=== PATIENT | female | born 1980 | race Caucasian/White ===

== ENCOUNTER 2018-02-08 14:46 | Emergency (ER) | payer BC ==
[~2018-02-08 14:46] MED LIST: PANT40 PO; PROM25 PO
== END 2018-02-08 16:30 | disposition left against medical advice (07) ==
LOC: ER 14:46
DX: Z53.21 Procedure and treatment not carried out due to patient leaving prior to being seen by health care provider (principal)

== ENCOUNTER 2018-02-08 16:39 | Emergency (ER) | payer BC ==
[~2018-02-08] VITALS: Ht 152.4 cm; Wt 61.2 kg
== END 2018-02-08 18:48 | disposition home or self-care (01) ==
LOC: ER 16:39
DX: M65.4 Radial styloid tenosynovitis [de Quervain] (principal)
CPT/HCPCS: 29125; 99283-25

== ENCOUNTER → 2018-09-03 | Outpatient (CLI) | payer BC ==
[2018-09-03 16:23] LABS: Appearance, Urine Hazy (Clear); Bilirubin, Urine Neg (Neg); Blood, Urine Neg (Neg); Color, Urine Yellow (P-Yellow); Glucose Qualitative, Urine Neg (Neg); Ketones, Urine Neg (Neg); Leukocyte Esterase, Urine Neg (Neg); Nitrite, Urine Neg (Neg); Protein, Urine 1+ (Neg); Urobilinogen, Urine NORM (Normal)
[2018-09-03 17:14] LABS: Bacteria Rare /hpf; Calcium Oxalate Crystals Few /hpf; Red Blood Cells, Urine Not Seen /hpf (0-2); Squamous Epithelial Cells Mod /hpf (Few); White Blood Cells, Urine 0-2 /hpf (0-5)
== END | disposition home or self-care (01) ==
LOC: LAB SHORT 09-02 09:32 → LAB 09-02 09:32
PROVIDERS: Family Medicine
DX: N39.0 Urinary tract infection, site not specified (principal)
CPT/HCPCS: 81001

== ENCOUNTER 2020-05-16 17:53 | Emergency (ER) | payer BC ==
[~2020-05-16] VITALS: Ht 152.4 cm; Wt 61.2 kg
[2020-05-16] MEDS ORDERED: Triamcinolone A15 GM TOP (18:26)
== END 2020-05-16 18:40 | disposition home or self-care (01) ==
LOC: ER 17:53
DX: L25.9 Unspecified contact dermatitis, unspecified cause (principal)
CPT/HCPCS: 99282

== ENCOUNTER 2021-08-12 03:36 | Emergency (ER) | payer BC ==
[~2021-08-12] VITALS: Ht 152.4 cm; Wt 63.0 kg
[~2021-08-12 03:36] MED LIST changes: +Triamcinolone A15 GM TOP
[2021-08-12 04:39] LABS: BASOPHILS ABSOLUTE AUTO 0.07 K/mm3 (0.00-0.23); BASOPHILS PERCENT AUTO 1 % (0-2); EOSINOPHILS ABSOLUTE AUTO 0.24 K/mm3 (0.00-0.68); EOSINOPHILS PERCENT AUTO 3 % (0-6); Hematocrit 43.4 % (33.0-51.0); Hemoglobin 14.6 g/dL (11.5-16.0); IMMATURE GRAN ABSOLUTE AUTO 0.02 K/mm3 (0.00-0.10); IMMATURE GRAN PERCENT AUTO 0 % (0-1); LYMPHOCYTES ABSOLUTE AUTO 2.71 K/mm3 (0.84-5.20); LYMPHOCYTES PERCENT AUTO 30 % (21-46); MONOCYTES ABSOLUTE AUTO 0.73 K/mm3 (0.16-1.47); MONOCYTES PERCENT AUTO 8 % (4-13); Mean Corpuscular HGB Conc 33.6 g/dL (31.5-36.5); Mean Corpuscular Volume 86 fL (80-100); Mean Platelet Volume 10.9 fL (9.1-12.4); NEUTROPHILS ABSOLUTE AUTO 5.15 K/mm3 (1.96-9.15); NEUTROPHILS PERCENT AUTO 58 % (41-73); Platelet Count 258 K/mm3 (150-400); RDW Coefficient Variation 12.7 % (11.7-14.2); RDW Standard Deviation 39.9 fL (35.1-46.3); Red Blood Cell Count 5.04 M/mm3 (3.80-5.20); White Blood Cell Count 8.92 K/mm3 (4.00-11.30)
[2021-08-12 05:39] LABS: Alanine Aminotransfer (ALT/SGP 39 U/L (12-78); Albumin, Blood 3.7 g/dL (3.4-5.0); Albumin/Globulin Ratio 0.8 (0.8-1.8); Alk Phos 55 U/L (50-136); Anion Gap 8 mmol/L (6-16); Aspartate Aminotrans (AST/SGOT 26 U/L (12-37); Bilirubin, Total 0.5 mg/dL (0.1-1.0); Blood Urea Nitrogen 13 mg/dL (8-24); Bun/Creatinine Ratio 18.3 (12.0-20.0); CO2, Blood 23 mmol/L (21-32); Calcium, Blood 8.5 mg/dL (8.5-10.1); Chloride, Blood 106 mmol/L (98-108); Creatinine, Blood 0.71 mg/dL (0.40-1.00); Globulin, Blood 4.4 g/dL (2.2-4.0); Glomerular Filtration Rate >60 (60-); Glucose, Blood 112 mg/dL (70-99); Potassium, Blood 3.1 mmol/L (3.5-5.5); Sodium, Blood 137 mmol/L (136-145); Total Protein, Blood 8.1 g/dL (6.4-8.2); Troponin I <0.015 ng/mL (0.000-0.040)
[2021-08-12] MEDS ORDERED: ALBU90OI INH (07:08)
== END 2021-08-12 07:33 | disposition home or self-care (01) ==
LOC: ER 03:36
PROVIDERS: Emergency Medicine
DX: R06.00 Dyspnea, unspecified (principal); E87.6 Hypokalemia; G47.00 Insomnia, unspecified; F41.9 Anxiety disorder, unspecified
CPT/HCPCS: 36415; 71046; 80053; 84484; 85025; 93005; 93010; A9270

== ENCOUNTER 2022-06-21 17:13 | Emergency (ER) | payer OTHER, BC ==
[~2022-06-21] VITALS: Ht 147.3 cm; Wt 65.3 kg
[~2022-06-21 17:13] MED LIST changes: +ALBU90OI INH
[2022-06-21] MEDS ORDERED: TIZANIDINE HCL2 M1 PO (19:10)
== END 2022-06-21 19:20 | disposition home or self-care (01) ==
LOC: ER 17:13
DX: M54.9 Dorsalgia, unspecified (principal); V89.2XXA Person injured in unspecified motor-vehicle accident, traffic, initial encounter
CPT/HCPCS: 72040; 72070

== ENCOUNTER 2022-10-21 18:11 | Emergency (ER) | payer OTHER ==
[~2022-10-21] VITALS: Ht 152.4 cm; Wt 64.9 kg
[~2022-10-21 18:11] MED LIST changes: +TIZANIDINE HCL2 M1 PO
== END 2022-10-21 22:42 | disposition home or self-care (01) ==
LOC: ER 18:11
DX: G56.03 Carpal tunnel syndrome, bilateral upper limbs (principal)
CPT/HCPCS: 99283

== ENCOUNTER 2024-04-29 02:15 | Emergency (ER) | payer BC ==
[~2024-04-29] VITALS: Ht 152.4 cm; Wt 69.0 kg
[2024-04-29 02:45] LABS: BASOPHILS ABSOLUTE AUTO 0.07 K/mm3 (0.00-0.23); BASOPHILS PERCENT AUTO 1 % (0-2); EOSINOPHILS ABSOLUTE AUTO 0.19 K/mm3 (0.00-0.68); EOSINOPHILS PERCENT AUTO 2 % (0-6); Hematocrit 43.8 % (33.0-51.0); Hemoglobin 14.8 g/dL (11.5-16.0); IMMATURE GRAN ABSOLUTE AUTO 0.02 K/mm3 (0.00-0.10); IMMATURE GRAN PERCENT AUTO 0 % (0-1); LYMPHOCYTES ABSOLUTE AUTO 2.58 K/mm3 (0.84-5.20); LYMPHOCYTES PERCENT AUTO 29 % (21-46); MONOCYTES ABSOLUTE AUTO 0.75 K/mm3 (0.16-1.47); MONOCYTES PERCENT AUTO 9 % (4-13); Mean Corpuscular HGB 30.1 pg (26.0-34.0); Mean Corpuscular HGB Conc 33.8 g/dL (31.5-36.5); Mean Corpuscular Volume 89 fL (80-100); Mean Platelet Volume 10.4 fL (9.1-12.4); NEUTROPHILS ABSOLUTE AUTO 5.26 K/mm3 (1.96-9.15); NEUTROPHILS PERCENT AUTO 59 % (41-73); Platelet Count 197 K/mm3 (150-400); RDW Coefficient Variation 12.6 % (11.7-14.2); RDW Standard Deviation 41.5 fL (35.1-46.3); Red Blood Cell Count 4.92 M/mm3 (3.80-5.20); White Blood Cell Count 8.87 K/mm3 (4.00-11.30)
[2024-04-29 03:35] LABS: Chloride (POC) 106 mmol/L (98-108); Creatinine (POC) 0.8 mg/dL (0.6-1.0); Glucose (ISTAT POC) 142 mg/dL (70-99); Potassium (POC) 3.1 mmol/L (3.5-5.5); Sodium (POC) 140 mmol/L (135-148); Total CO2 (POC) 20 mmol/L (21-32)
[2024-04-29 05:56] LABS: Albumin, Blood 3.5 g/dL (3.4-5.0); Albumin/Globulin Ratio 0.8 (0.8-1.8); Bilirubin, Total 0.3 mg/dL (0.1-1.0); Bun/Creatinine Ratio 17.2 (12.0-20.0); Calcium, Blood 8.5 mg/dL (8.5-10.1); Creatinine, Blood 0.87 mg/dL (0.40-1.00); Globulin, Blood 4.2 g/dL (2.2-4.0); Potassium, Blood 3.3 mmol/L (3.5-5.5); Total Protein, Blood 7.7 g/dL (6.4-8.2)
[2024-04-29] MEDS ORDERED: NS 1,000 ML IV SCH (07:00)
[2024-04-29] MEDS ORDERED: Potassium Chloride 20 MEQ TabCR PO ONE (07:00)
[2024-04-29 08:00] VITALS: BP 117/78
[2024-04-29] MEDS ORDERED: ESTARYLLA 0.251 EACH PO (08:08)
== END 2024-04-29 08:39 | disposition home or self-care (01) ==
LOC: ER 02:15
PROVIDERS: Emergency Medicine
DX: R55 Syncope and collapse (principal); F41.9 Anxiety disorder, unspecified; E87.6 Hypokalemia; E86.0 Dehydration
CPT/HCPCS: 71046; 80047; 80053; 83880; 84484; 85014; 85025; 93005; 93010; 96360; 99284-25; A9270; J7030

== ENCOUNTER 2024-05-03 04:19 | Emergency (ER) | payer BC ==
[~2024-05-03] VITALS: Ht 152.4 cm; Wt 69.0 kg
[~2024-05-03 04:19] MED LIST changes: +ESTARYLLA 0.251 EACH PO
[2024-05-03] MEDS ORDERED: LORazepam 1 MG Tab PO ONE (04:25)
[2024-05-03] MEDS ORDERED: KLONOPIN0.5 M9 PO (04:29)
[2024-05-03 04:37] LABS: Calcium, Ionized (POC) 1.06 mmol/L (1.10-1.46); Chloride (POC) 103 mmol/L (98-108); Creatinine (POC) 0.6 mg/dL (0.6-1.0); Glucose (ISTAT POC) 141 mg/dL (70-99); Hemoglobin (POC) 16.7 g/dL (12.0-16.0); Potassium (POC) 3.3 mmol/L (3.5-5.5); Sodium (POC) 137 mmol/L (135-148); Total CO2 (POC) 21 mmol/L (21-32)
[2024-05-03 04:45] VITALS: BP 117/94
[2024-05-03] MEDS ORDERED: LORA.5 PO (04:50)
== END 2024-05-03 05:00 | disposition home or self-care (01) ==
LOC: ER 04:19
PROVIDERS: Emergency Medicine
DX: R06.02 Shortness of breath (principal); F41.9 Anxiety disorder, unspecified; Z79.899 Other long term (current) drug therapy
CPT/HCPCS: 71045; 80047; 85014; 93005; 93010; 99285-25; A9270